=== PATIENT | female | born 1985 | race African-American/Black ===

== ENCOUNTER 2023-08-26 12:38 | Outpatient (CLI) | payer BC, SELFPAY ==
--- NOTE | ~2023-08-26 | MM_ITS ---
EXAMINATION: MM diagnostic lisa BI w lito HISTORY: Intermittent breast soreness TECHNIQUE: 3-D tomosynthesis images of the bilateral breasts were performed and synthetic 2-D images were generated. CAD analysis was submitted and interpreted. COMPARISON: None FINDINGS: Breast parenchyma is extremely dense, which lowers the sensitivity of mammography. No suspicious mass lesion or distortion seen in either breast. No suspicious masses or microcalcifica tions. IMPRESSION: No mammographic evidence for malignancy. BI-RADS Category 1: Negative Reviewed, dictated and finalized at location .
== END 2023-08-26 12:39 | disposition home or self-care (01) ==
LOC: ANHIMG 12:43
PROVIDERS: PCP Nurse Practitioner Family; Visit Provider Nurse Practitioner
DX: R91.8 Other nonspecific abnormal finding of lung field (principal)
CPT/HCPCS: 77062; 77066; G0279

== ENCOUNTER 2025-01-25 08:58 | Outpatient (CLI) | payer BC, SELFPAY ==
--- NOTE | ~2025-01-25 | MM_ITS ---
EXAMINATION: MM screening lisa BI w lito HISTORY: Screening TECHNIQUE: Craniocaudal and mediolateral oblique 3-D tomosynthesis images were obtained and synthetic 2-D images were generated. CAD analysis was submitted and interpreted. COMPARISON: 08/26/2023 BREAST PARENCHYMAL COMPOSITION: Dense: The breasts are extremely dense, which lowers the sensitivity of mammography. FINDINGS: There is no evidence of suspicious mass, calcification, or architectural distortion to suggest malignancy in either breast. There has been no suspicious interval change. IMPRESSION: 1. No mammographic evidence of malignancy. 2. Recommend routine screening mammography in one year. BI-RADS Category 1: Negative Reviewed, dictated and finalized at location [facility]. [facility]
--- OUTSIDE RECORDS SUMMARY | 2025-01-25 09:37 | XMS_ITS | Clinical Summary ---
Author Organization [facility] Address [address] [place] [address] Care Team Providers Care Staffing Rn Name Role Phone Unique, Lupe Alejandra DO Primary Care Provider Allergies No known active allergies Medications multivit 43-caal-klnech 1-dha (PNV-DHA) 27 mg iron-1 mg -300 mg capsule one tab Qday 01/08/2012 Active ferrous sulfate 325 mg (65 mg of elemental iron) tablet daily 04/13/2015 Active cholecalciferol 400 unit capsule Act amina Active Problems Problem Noted Date Diagnosed Date Normal 06/14/2011 Resolved Problems Problem Noted Date Diagnosed Date Resolved Date Antepartum cervical incompetence 01/10/2011 11/19/2023 Immunizations Immunization Administration Dates Next Due DTP 12/01/1990, 0,02/27/1986,1985, 6 Influenza, Unspecified 12/11/2022(Deferred: Nathaly ent Refused) MMR 10/14/1995,11/01/1989 OPV 12/01/1990,02/27/1986,1985 ,1985 Tdap 07/05/2015 Surgical History Surgery Date Site/Laterality Comments EAR SURGERY Ear Surgery - (Added by TW Conv) Medical History Medical History Date Comments Impaired fasting glucose Impaire d fasting glucose - (Added by TW Conv) Gestational diabetes mellitu s in Gestational diabetes mellitu s, antepartum - (Added by TW Conv) Family History Medical History Relation Name Comments prostate issues Father Hypertension Mother Diabetes type II Other Type 2 Diab etes Mellitus - (Added by TW Conv) Prostate cancer Paternal Grandfather Pros clark Cancer - (Added by TW Conv) Relation Name Status Comments Father Mother Other Paternal Grandfather Social History Tobacco Use Types Packs/Day Years Used Date Smoking Tobacco: Never AUDIT-C Answer Date Recorded Q1: How often do you have a drink containing alcohol? Never 11/19/2023 Q2: How many drinks containi ng alcohol do you have on a typical day when you are drinking? Patient does not drink Q3: How often do you have si x or more drinks on one occasion? Never 11/19/2023 PHQ-2 Answer Date Recorded PHQ-2 Total Score (If total score is 3 or more points, staff should administer the PHQ-9) 0 11/19/2023 Personal Safety Answer Date Recorded Have you ever been in or are you currently in a harmful physical or emotional relationship or is someone making you feel afraid or unsafe? Denies 06/27/2023 Comments No Sex and Gender Information Value Date Recorded Sex Assigned at Not on file Legal Sex Female 4:13 AM [employer] Gender Identity Not on file Sexual Orientation Not on file Last Filed Vital Signs Vital Sign Reading Time Taken Comments Blood Pressure 104/66 11/19/2023 11:32 AM CDT Pulse 73 11/19/2023 11:32 AM CDT Temperature 36.4 C (97.6 F) 11/19/2023 11:32 AM CDT Respiratory Rate 18 06/27/2023 9:58 AM CDT Oxygen Saturation 97% 11/19/2023 11: 32 AM CDT Inhaled Oxygen Concentration - - Weight 61.1 kg (134 lb 12.8 oz) 024 11:32 AM CDT Height 157.5 cm (5' 2) 11/19/2023 11:3 2 AM CDT Body Mass Index 24.66 11/19/2023 11:32 AM CDT Plan of Treatment Health Maintenance Due Date Last Done Comments Breast Cancer Screening-Mammogram 1985 Cervical Cancer Screening 1985 Hepatitis C Screening 1985 Varicella Vaccines (1 of 2 - 13+ 2-dose series) 1998 Hepatitis B Screening 2003 HPV Vaccines (1 - 3-dose SCDM series) 01/24/2012 Influenza Vaccine (#1) 2024 Depression Screening 11/18/2024 11/19/2023 Regular Well Visit/Exam 18-64 11/18/2024 11/19/2023 DTaP/Tdap/Td Vaccine (7 - Td or Tdap) 07/04/2025 07/05/2015, 12/01/1990, 11/01/1989, Additional history exists Pneumococcal vaccine <65 Aged Out No longer eligible based on patient's age to complete this topic Insurance [facility] [employer] [facility] Address: [id number] [place] [address] [employer] [facility] Address: [facility] [id number] [place] [address] Care Teams Staffing Rn Relationship Specialty Start Date End Date Lupe Calhoun DO PCP - General Family Medicine 11/19/23
== END 2025-01-25 08:59 | disposition home or self-care (01) ==
LOC: ANHFOHIMG 08:59
PROVIDERS: Visit Provider Nurse Practitioner
DX: Z12.31 Encounter for screening mammogram for malignant neoplasm of breast (principal)
CPT/HCPCS: 77063; 77067